=== PATIENT | male | born 1965 | race Caucasian/White ===

== ENCOUNTER 2016-04-29 03:32 | Emergency (ER) | payer BC ==
[2016-04-29 01:05] LABS: BASOPHILS 0.4 %; BASOPHILS ABSOLUTE 0.03 10/3/uL (0.0-0.16); EOSINOPHILS 4.5 %; EOSINOPHILS ABSOLUTE 0.31 10/3/uL (0.0-0.53); ER CBC TAT 0 Hrs 16 Mins; HEMATOCRIT 41.2 % (40.0-51.0); HEMOGLOBIN 14.1 g/dL (13.6-17.8); IMMATURE GRANULOCYTES 0.4 %; IMMATURE GRANULOCYTES ABSOLUTE 0.03 10/3/uL (0.0-0.11); LYMPHOCYTES 30.7 %; MEAN CORPUS HGB CONC 34.2 g/dL (32.0-36.0); MEAN CORPUSCULAR HEMOGLOB 30.3 pg (26.0-34.0); MEAN CORPUSCULAR VOLUME 88.4 fL (80-100); MONOCYTES 7.3 %; NEUTROPHILS 56.7 %; NEUTROPHILS ABSOLUTE 3.86 10/3/uL (2.02-8.40); PLATELET COUNT 257 10/3/uL (150-400); RBC DISTRIBUTION WIDTH 13.6 % (12.0-16.0); RED CELL COUNT 4.66 10/6/uL (4.7-6.1); WHITE BLOOD CELLS 6.8 10/3/uL (4.5-10.5)
[2016-04-29 01:07] LABS: MANUAL DIFF NO %
[2016-04-29 01:12] LABS: PARTIAL THROMBO TIME 27.8 SEC (22.5-37.2); PROTIME (NOT ORD) 13.4 SEC (12.0-14.5)
[2016-04-29 01:20] LABS: BUN (BLOOD UREA NITROGEN) 19 MG/DL (6-23); CALCIUM, SERUM 8.7 MG/DL (8.5-10.4); CHEST PAIN PROFILE TAT 0 Hrs 31 Mins; CHLORIDE, SERUM 106 MMOL/L (96-112); CO2 (CARBON DIOXIDE) 27 MMOL/L (24-34); CREATININE 0.94 MG/DL (0.70-1.30); GFR AFRICAN AMERICAN 108 ML/MIN (>=60); GFR NON AFRICAN AMERICAN 94 ML/MIN (>=60); GLUCOSE, SERUM 97 MG/DL (60-99); POTASSIUM, SERUM 3.9 MMOL/L (3.5-5.3); SODIUM, SERUM 144 MMOL/L (135-148); TROPONIN I <0.02 NG/ML (<0.05)
[~2016-04-29 03:32] MED LIST: ASAB PO; BRILINTA90 MG PO; COREG6 PO; FIBERCON PO; LIPITOR40 PO; MULTIVIT/MIN PO; NITROQUICK0.4 MG SL; Z300 PO
[2016-04-29 03:37] LABS: ALBUMIN 3.7 G/DL (3.5-5.0); SGOT(AST) 19 U/L (5-40); SGPT(ALT) 42 U/L (5-65); TOTAL BILIRUBIN 0.4 MG/DL (0-1.2); TOTAL PROTEIN 7.2 G/DL (6.0-8.5)
[2016-04-29 03:40] LABS: ALKALINE PHOSPHATASE 97 U/L (45-117); DIRECT BILIRUBIN < 0.1 MG/DL (0.0-0.4); INDIRECT BILIRUBIN(NOT ORDER) 0.3 MG/DL (0.1-0.9)
== END 2016-04-29 04:15 | disposition home or self-care (01) ==
LOC: ER 03:32
PROVIDERS: Emergency Medicine
DX: R07.89 Other chest pain (principal); I10 Essential (primary) hypertension; Z95.5 Presence of coronary angioplasty implant and graft; Z88.8 Allergy status to other drugs, medicaments and biological substances; Z79.82 Long term (current) use of aspirin; Z79.899 Other long term (current) drug therapy
CPT/HCPCS: 71020; 80048; 80076; 83690; 83735; 84484; 85025; 85610; 85730; 93005; 99285; A9270-GY